=== PATIENT | female | born 1995 ===

== ENCOUNTER 2018-08-26 10:02 | Emergency (ER) | payer OTHER ==
[~2018-08-26] VITALS: Ht 167.6 cm; Wt 59.0 kg
== END 2018-08-26 11:02 | disposition home or self-care (01) ==
LOC: ER 10:02
DX: S90.221A Contusion of right lesser toe(s) with damage to nail, initial encounter (principal); W20.8XXA Other cause of strike by thrown, projected or falling object, initial encounter; Y93.89 Activity, other specified; Y92.89 Other specified places as the place of occurrence of the external cause; Y99.8 Other external cause status